=== PATIENT | female | born 1950 | race Caucasian/White ===

== ENCOUNTER 2016-09-01 08:36 | Inpatient (IN) | payer BC ==
[~2016-09-01] VITALS: Ht 162.6 cm; Wt 95.3 kg
--- NOTE | 2016-09-01 12:27 | DIAGNOSTIC IMAGING REPORT ---
PROCEDURE: CT SINUS/FACIAL BONES W/CONT CLINICAL INDICATION: Left periorbital swelling. Initial encounter. TECHNIQUE: 100 ml of Isovue 300 injected intravenously and axial images were obtained through the face with coronal and sagittal reformations. COMPARISON: None. FINDINGS: There is mild left periorbital soft tissue swelling but there is no evidence of an abscess. The globes and orbits are unremarkable. The parotid and submandibular glands are normal. No soft tissue masses. Small nonspecific cervical lymph nodes bilaterally. Right antral window. Mild right maxillary and sphenoid sinus disease. Moderate degenerative changes of the right TMJ. IMPRESSION: 1. Mild left periorbital preseptal soft tissue swelling without evidence of an abscess 2. Moderate right TMJ osteoarthritic changes 3. Right antral window 4. Mild right maxillary and sphenoid sinus disease 5. Results discussed with Dr. Blank All CT scans at this facility use dose modulation, iterative reconstruction, and/or weight-based dosing when appropriate to reduce radiation dose to as low as reasonably achievable.
--- NOTE | 2016-09-01 12:58 | ED NURSING NOTES ---
Clinical Report - Nurses [place] [address] [place] [address] 09/01/2016 8:39 Patient: MINERVA MONTIEL TRIAGE Acuity: LEVEL 3. Chief Complaint: REDNESS, PAIN and VISION PROBLEM TO LEFT EYE. Alert. No acute distress. SEPSIS SCREEN: Sepsis Screen. Negative (no infection suspected/documented). --09:21 Melissa Boles R.N. 09:15 09/01/16. BP: 173/94. HR: 75. RR: 12. O2 saturation: 97% on room air. Temp: 98.3 F (oral). Pain level now: 10/01. --09:21 Melissa Boles R.N. VISUAL ACUITY: Visual acuity performed without corrective lenses: left eye 20/70; right eye 20/50; both eyes 20/40 minus two letters. --10:23 Melissa Boles R.N. Weight: 94.8 kg stated. Height/Length: 64 inches Per Patient. BMI: 35.9. --09:20 Melissa Boles R.N. Medications Hydrochlorothiazide Oral 25 mg, daily. Imitrex Subcutaneous, as needed. Levothyroxine Sodium Oral, daily. --09:17 Melissa Boles R.N. Atorvastatin Calcium Oral 80 mg. --09:18 Melissa Boles R.N. Lexapro Oral 10 mg. --09:18 Melissa Boles R.N. Medication/allergy information source: the patient. --09:21 Melissa Boles R.N. Allergies Ceclor.(hives) --09:18 Melissa Boles R.N. Sulfa Antibiotics. --09:18 Melissa Boles R.N. History Arrived by private vehicle. Historian: patient. Unaccompanied. Primary physician (Adam). This started yesterday. ( Pt reports she is taking augmentin and tobermycin eye drops, yet her eye is getting more painful, red, and is having difficulty seeing.). She has had eye discomfort and blurred vision. She has had a moderate amount of watery discharge from the left eye. PAST MEDICAL HX: The patient has had a hysterectomy. SOCIAL HX: Never smoker. No alcohol use or drug use. FALL RISK ASSESSMENT: Fall risk assessment completed. No fall risk identified. NUTRITIONAL RISK ASSESSMENT: The nutritional risk assessment revealed no deficiencies. FUNCTIONAL ASSESSMENT: Functional assessment: no impairments noted. LEARNING NEEDS ASSESSMENT: The learning needs assessment revealed no barriers. SKIN INTEGRITY ASSESSMENT: Skin integrity risk assessment completed. No skin integrity risk identified. --: Melissa Boles R.N. PROBLEMS: Headache. Immunizations. Migraine Headache. Hypertension. Asthma. --:18 Melissa Boles R.N. ADDITIONAL SURGERIES: Cholecystectomy. Hysterectomy. --: Melissa Boles R.N. Assessment GENERAL / NEURO / PSYCH: Alert. Oriented X 4. Appears in no acute distress. Cameron Coma Scale: 15- eyes open spontaneously (4); best verbal response- oriented x 4 (5); best motor response- obeys commands (6). Patient appears calm and cooperative. RESPIRATORY: Respirations not labored. CVS: Capillary refill less than 2 seconds. GI / : Abdomen soft and nontender. SKIN: Mucous membranes are pink. Skin is warm and dry. --: Melissa Boles R.N. Interventions ID band on patient. To treatment room. --: Melissa Boles R.N. PHYSICAL ASSESSMENT 09:09/01/16. Ambulatory to room. GENERAL / NEURO / PSYCH: Alert. Appears in no acute distress. HEENT: No facial asymmetry noted. Conjunctival findings present: redness of the left conjunctiva and purulent exudate present in the left eye. CVS: Capillary refill less than 2 seconds. SKIN: Skin is warm and dry. Normal skin turgor. --: Melissa Boles R.N. NURSING PROGRESS NOTES 09:09/01/16. Two patient identifiers checked. Call light placed in reach. Side rails up x 1. Bed placed in lowest position. Brakes of bed on. Patient ready for evaluation- chart flagged and ED physician notified. --: Melissa Boles R.N. 10:08 09/01/2016 Site #1 started via IV in the left antecubital space with an 20g angiocath, with aseptic technique and good blood return; one attempt. Blood drawn: rainbow set. Labeled in the presence of the patient and sent to the lab. --10:18 Melissa Boles R.N. 10:14 09/01/2016 Started bag #1 1000 mL IV Fluids IV NS (Saline); at 150 mL/hr over 4 hour(s) via site #1 via IV pump. Allergies verified and confirmed 5 rights. IV patency established. IV site checked: no pain, redness, or swelling. IV flushed thoroughly pre- and post-medication administration. --10:19 Melissa Boles R.N. 12:08 09/01/16. The patient is calm and resting quietly. HEENT: The patient reports eye pain. --12:08 Melissa Boles R.N. 12:09 09/01/2016 Ibuprofen PO 800 mg given. Allergies verified and confirmed 5 rights. --12:09 Melissa Boles R.N. 13:02 09/01/2016 Dilaudid (HYDROmorphone HCl PF) IVP 0.5 mg given over 1 minute(s) via site #1. Allergies verified, confirmed 5 rights and sedative warning given to the patient. IV patency established. IV site checked: no pain, redness, or swelling. IV flushed thoroughly pre- and post-medication administration. IVP given by RN. --13:02 Melissa Boles R.N. 13:03 09/01/2016 Started 600 mg of Clindamycin IVPB in bag #1 50 mL; at 100 mL/hr over 30 minute(s) via site #1 via IV pump. Allergies verified and confirmed 5 rights. IV patency established. IV site checked: no pain, redness, or swelling. IV flushed thoroughly pre- and post-medication administration. --13:03 Melissa Boles R.N. 13:03 09/01/16. BP: 150/91. HR: 80. RR: 12. O2 saturation: 97% on room air. --13:03 Melissa Boles R.N. 13:32 09/01/2016 Clindamycin IVPB Discontinued: bag #1 infused. Total amount infused: 50 mL. IV patency established. IV site checked: no pain, redness, or swelling. IV flushed thoroughly. --13:32 Luis Shelton R.N. 13:34 09/01/16. ( Pt assisted to bathroom with RN, tolerated well.). --13:34 Michelle Jones 15:00 09/01/2016 IV Fluids IV NS Discontinued: bag #1 infused upon admission. Total amount infused: 1000 mL. IV patency established. IV site checked: no pain, redness, or swelling. IV flushed thoroughly. --17:00 Melissa Boles R.N. DISPOSITION / DISCHARGE Departure time: 15:36 Sep 01 2016. Condition at departure: improved and stable. Disposition: observation. Transported via stretcher by [employer]. Report was given to a nurse via a phone call. Report included patient's care, treatment, medications, reviewed medication reconcilliation, and condition (including any recent changes or anticipated changes). All questions were answered. Report was acknowledged and care was transferred. (Sanjiv RN). Patient's personal items include: shirt, pants, undergarments, coat, socks, shoes, glasses, jewelry, wallet and cell phone, elias earrings; items were placed in belongings bag, given to the patient and transported with the patient. She did not have dentures or a hearing aid. --15:36 Melissa Boles R.N. 15:33 09/01/16. BP: 147/81. HR: 70. RR: 16. O2 saturation: 96% on room air. Temp: 98.2 F (oral). Pain level now: 08/03. --15:36 Melissa Boles R.N. 15:36 09/01/2016 Site #[address] upon admission; patent, no pain and no signs of infection or infiltration. Flushed with 10 mL saline; flushes easily. --15:36 Melissa Boles R.N. Locked/Released at 09/01/2016 17:00 by Melissa Boles R.N.
--- NOTE | 2016-09-01 12:58 | ED CLINICAL REPORT ---
Clinical Report - Physicians/Mid Levels [facility] [address] [place] [address] 09/01/2016 8:39 [id number] Time Seen: 09:49 Sep 01 2016. Arrived- By private vehicle. Historian- patient. CPT: ER phys charges level 5 (#[id number]). HISTORY OF PRESENT ILLNESS Chief Complaint: EYE PAIN and REDNESS. This started yesterday, involves the left eye and is characterized as moderate in severity. This started yesterday. ( Pt reports she is taking augmentin and tobermycin eye drops, yet her eye is getting more painful, red, and is having difficulty seeing.). She has had eye discomfort and blurred vision. She has had a moderate amount of watery discharge from the left eye. The patient did not sustain an injury. Eye pain, discomfort, burning, redness and irritation. Eye discharge and matting. Eyelid swelling. Decreased vision. REVIEW OF SYSTEMS No fever, cough, chills, fatigue or fever. No nasal congestion, epistaxis, runny nose, mouth sores or sore throat. No cough, difficulty breathing, abdominal pain, urinary frequency or weakness. No diabetic symptoms, easy bruising or difficulty with urination. The patient has had decreased vision and eye irritation. Sinus congestion. All systems otherwise negative, except as recorded above. PAST HISTORY No history of prior eye injury, diabetes mellitus or glaucoma. She does not wear contact lenses. Medications: Lexapro Oral 10 mg. Atorvastatin Calcium Oral 80 mg. Hydrochlorothiazide Oral 25 mg, daily. Imitrex Subcutaneous, as needed. Levothyroxine Sodium Oral, daily. Allergies: Ceclor.(hives) Sulfa Antibiotics. SOCIAL HISTORY Never smoker. No alcohol use or drug use. ADDITIONAL NOTES The nursing notes have been reviewed. PHYSICAL EXAM Vital Signs: 09/01/2016 09:15 BP: 173/94. HR: 75. RR: 12. O2 saturation: 97%. Temp: 98.3 F. Pain level now: 4/10. Appearance: Alert. Oriented X3. HEENT: Nose normal. Pharynx normal. Head appears normal to external inspection. Rt Eye: Right eye exam normal. Eyes: Visual acuity noted- see nurse's notes. Corneas appear normal to inspection. Pupils equal, round and reactive to light. Accommodation normal. EOMs intact. Anterior chambers clear. Anterior chambers of normal depth. Lt Eye: Moderate eyelid edema and erythema. Conjunctival edema. Injected conjunctiva. Exudate present. No stye present. No foreign body under the eyelid. No injury to the eyelids. No conjunctival foreign body or injury to the conjunctiva or sclera. Neck: Neck supple. Normal inspection. CVS: Normal heart rate and rhythm. Respiratory: No respiratory distress. Skin: No rash. Neuro: Oriented X 3. LABS, X-RAYS, AND EKG Laboratory Tests: CBC w Diff: (FREEMAN: 09/01/2016 10:10) ( MsgRcvd 09/01/2016 10:30) Final results Test Result Flag Units (Reference) WHITE BLOOD COUNT 8.8 K/uL (4.5-11.5) RED BLOOD COUNT 4.86 M/uL (4.00-5.20) HEMOGLOBIN 13.9 gm/dL (12.0-16.0) HEMATOCRIT 41.5 % (36.0-46.0) MEAN CELL VOLUME 85 fL (80-100) MEAN CORPUSCULAR HGB 29 pg (26-34) MEAN CORPUSCULAR HGB CONC 34 g/dL (31-37) RED CELL DISTRIBUTION WIDTH 15.1 H % (11.6-14.8) PLATELET COUNT 321 K/uL (150-400) NEUTROPHIL % 63.3 % (50-75) LYMPH % 24.1 L % (25-40) MONO % 9.5 % (3-14) EOSINOPHIL % 2.9 % (0-4) BASOPHIL % 0.2 % (0-2) [id number]: (FREEMAN: 09/01/2016 10:10) ( MsgRcvd 09/01/2016 11:11) Final results Test Result Flag Units (Reference) PROCALCITONIN <0.5 ng/mL (0-0.5) PCT Concentration: Interpretation : Risk/option for action PCT <=0.5 ng/mL : Systemic : Low risk forinfection(sepsis): progression to severeis not likely. : systemic infection.Local bacterial : CAUTION-PCT levelsinfection is : below 0.5 ng/mL do notpossible. : exclude an infection,because localizedinfections (withoutsystemic signs) may beassociated with suchlow levels. If PCT ismeasured very earlyafter a bacterialchallenge (usually <6hours), these valuesmay still be low. Inthis case PCT shouldbe re-assessed 6-24hours later. PCT >0.5 and : Systemic infection: Moderate risk for<= 2 ng/mL : (sepsis) is : progression to severepossible, but : systemic infection.other conditions : The patient should beare known to : closely monitoredelevate PCT. : both clinically andby re-assessing PCTwithin 6-24 hours. PCT > 2 ng/mL : Systemic infection: High risk for(sepsis) is likely: progression to severeunless other : systemic infection.causes are known. : PCT >= 10 ng/mL : Important systemic: High likelihood ofinflammatory : severe sepsis orresponse, almost : septic shock.exclusively due to:severe bacterial :sepsis or septic :shock. : BMP: (FREEMAN: 09/01/2016 10:10) ( MsgRcvd 09/01/2016 10:41) Final results Test Result Flag Units (Reference) GLUCOSE 112 H mg/dL (70-110) BUN 19 H mg/dL (7-18) CREATININE 0.9 mg/dL (0.6-1.3) Estimated GFR >60 mL/min Estimated GFR- >60 mL/min Note: Persistent reduction over 3 months in eGFR<60 mL/min/1.73 m2 defines CKD. Patients with eGFR values>=60 mL/min/1.73 m2 may also have CKD if evidence ofpersistent proteinuria. Additional information may be foundat www.kidney.org. SODIUM 142 mmol/L (136-145) POTASSIUM 3.7 mmol/L (3.5-5.1) CHLORIDE 103 mmol/L (98-107) CARBON DIOXIDE 29 mmol/L (21-32) CALCIUM 9.2 mg/dL (8.5-10.1) C-REACTIVE PROTEIN 1.4 H mg/dL (0.0-0.9) . Note - Tests: (CT face: pre-septal periorbital cellulitis.). PROGRESS AND PROCEDURES Course of Care: IV NS Cleocin 600 mg IV Motrin 800 mg po Dilaudid 0.5 mg IV Patient is stable. Symptoms better. Discussed case with on-call health care provider, (Ry). Reviewed test results. Agreed upon treatment plan. Health care provider will see patient in hospital. Patient/family counseled. Disposition orders written. Disposition: Admitted to Acute Care. CLINICAL IMPRESSION Acute periorbital cellulitis left eye. (Electronically signed by Nate Blank MD 09/02/2016 15:20)
--- NOTE | 2016-09-01 12:58 | ED ORDER SUMMARY ---
..... Patient: MINERVA MONTIEL OrderSheet [facility] VisitID: [id number] [place] [address] 66y, F Registration Date/Time: 09/01/2016 ORDER SHEET Weight: 94.8 kg (stated) Allergies: Ceclor, Sulfa Antibiotics GENERAL ORDERS: CT Sinus/Facial Bones w Cont (left periorbital cellulitis) Urgent (09:54 09/01/2016 Madi OWUSU) (Ack 10:11 LTapper) (11:57 MWinterer R.N.) CBC w Diff Urgent (09:55 09/01/2016 Madi OWUSU) (Ack 10:11 LTapper) (10:18 MWinterer R.N.) PCT (Procalcitonin) Urgent (09:55 09/01/2016 Mdai OWUSU) (Ack 10:11 LTapper) (10:18 MWinterer R.N.) CRP Urgent (09:55 09/01/2016 Madi OWUSU) (Ack 10:11 LTapper) (10:18 MWinterer R.N.) BMP Urgent (09:55 09/01/2016 Madi OWUSU) (Ack 10:11 LTapper) (10:18 MWinterer R.N.) Visual Acuity (09:55 09/01/2016 Madi OWUSU) (Ack 10:01 MWinterer R.N.) (10:22 MWinterer R.N.) MEDICATION ORDERS: Ibuprofen PO 800 mg (NOW) (12:09 09/01/2016 MWinterer R.N. verbal order read back to Madi OWUSU) (12:09 MWinterer R.N.) IV FLUIDS: IV NS : initial bolus none -, then 150 mL/hr for 4h (NOW); Routine (09:53 09/01/2016 Madi OWUSU) (Ack 10:01 MWinterer R.N.) (10:19 MWinterer R.N.) Clindamycin IV 600 mg/50mL (NOW) (12:48 09/01/2016 Madi OWUSU) (13:03 MWinterer R.N.) Dilaudid IV 0.5 mg (NOW) (12:49 09/01/2016 Madi OWUSU) (13:02 Aparna Yee) ORDER SHEET NOTES: [Electronically signed by Melissa Boles R.N. (17:00 09/01/2016)] [Electronically signed by Nate Blank MD (15:20 09/02/2016)] [Electronically locked/signed by Melissa Boles R.N. (17:09/01/2016)]
--- NOTE | 2016-09-01 12:58 | ED ORDER SUMMARY ---
..... Patient: MINERVA MONTIEL OrderSheet [facility] VisitID: [id number] [place] [address] 66y, F Registration Date/Time: 09/01/2016 ORDER SHEET Weight: 94.8 kg (stated) Allergies: Ceclor, Sulfa Antibiotics GENERAL ORDERS: CT Sinus/Facial Bones w Cont (left periorbital cellulitis) Urgent (09:54 09/01/2016 Madi OWUSU) (Ack 10:11 LTapper) (11:57 MWinterer R.N.) CBC w Diff Urgent (09:55 09/01/2016 Madi OWUSU) (Ack 10:11 LTapper) (10:18 MWinterer R.N.) PCT (Procalcitonin) Urgent (09:55 09/01/2016 Madi OWUSU) (Ack 10:11 LTapper) (10:18 MWinterer R.N.) CRP Urgent (09:55 09/01/2016 Madi OWUSU) (Ack 10:11 LTapper) (10:18 MWinterer R.N.) BMP Urgent (09:55 09/01/2016 Madi OWUSU) (Ack 10:11 LTapper) (10:18 MWinterer R.N.) Visual Acuity (09:55 09/01/2016 Madi OWUSU) (Ack 10:01 MWinterer R.N.) (10:22 MWinterer R.N.) MEDICATION ORDERS: Ibuprofen PO 800 mg (NOW) (12:09 09/01/2016 MWinterer R.N. verbal order read back to Madi OWUSU) (12:09 MWinterer R.N.) IV FLUIDS: IV NS : initial bolus none -, then 150 mL/hr for 4h (NOW); Routine (09:53 09/01/2016 Madi OWUSU) (Ack 10:01 MWinterer R.N.) (10:19 MWinterer R.N.) Clindamycin IV 600 mg/50mL (NOW) (12:48 09/01/2016 Madi OWUSU) (13:03 MWinterer R.N.) Dilaudid IV 0.5 mg (NOW) (12:49 09/01/2016 Madi OWUSU) (13:02 Aparna Yee) ORDER SHEET NOTES: [Electronically signed by Melissa Boles R.N. (17:00 09/01/2016)] [Electronically signed by Nate Blank MD (15:20 09/02/2016)] [Electronically locked/signed by Melissa Boles R.N. (17:09/01/2016)]
[2016-09-01 16:18] VITALS: BP 162/94
[2016-09-01 18:01] VITALS: BP 133/70
[2016-09-01] MEDS ORDERED: LIPITOR80 MG PO (18:22)
[2016-09-01] MEDS ORDERED: HYDROCHLOROTHIA25 MG PO (18:22)
[2016-09-01] MEDS ORDERED: LEXAPRO10 MG PO (18:23)
[2016-09-01] MEDS ORDERED: LEVO-T125 MCG (18:23)
[2016-09-01] MEDS ORDERED: ALBUTEROL2.5 MG/3 M IN (18:25)
[2016-09-01] MEDS ORDERED: SYMBICORT1 AE1 (18:25)
[2016-09-01] MEDS ORDERED: PRILOSEC20 MG (18:26)
--- NOTE | 2016-09-01 22:59 | HISTORY AND PHYSICAL ---
ADMITTED: 09/01/2016 HISTORY OF PRESENT ILLNESS: This is a 66-year-old previously healthy female presenting to initially her own clinic after less than 12 hours of initially scleral injection, followed by swelling and mild erythema of her upper and lower eyelid on the left eye. Later in the afternoon, she went to the walk-in clinic and was diagnosed with conjunctivitis and sinusitis and prescribed Augmentin and tobramycin eyedrops. This morning, she woke up with increased pain and increased swelling and, therefore, came to the emergency room. MEDICAL/SURGICAL HISTORY: Past medical history: 1. Epiretinal tear in her right eye. 2. Bilateral cataracts. 3. Hypertension. 4. Dyslipidemia. 5. Asthma. 6. Hypothyroidism. 7. GERD. 8. Depression. Past surgical history: 1. 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 2. T and A. 3. Cholecystectomy. 4. Total hysterectomy and bilateral oophorectomy. 5. Right knee arthroplasty. 6. Bilateral arthroscopy with meniscal repairs. 7. Sinus surgeries x4. MEDICATIONS: 1. Omeprazole 20 mg p.o. daily. 2. Levothyroxine 125 mcg p.o. daily. 3. Symbicort 2 puffs inhaled b.i.d. 4. Albuterol HFA 2 puffs inhaled q.4 hours p.r.n. wheezing. 5. Atorvastatin 80 mg p.o. daily. 6. Hydrochlorothiazide 25 mg p.o. daily. 7. Lexapro 10 mg p.o. daily. ALLERGIES: 1. SULFA. 2. CECLOR. SOCIAL HISTORY: She lives with her daughters. She does have a pet dog. She denies any smoking, alcohol, or drug use currently or in the past. FAMILY HISTORY: Parents with hypertension and dyslipidemia. Father also with aortic aneurysm. REVIEW OF SYSTEMS: A full 12-point review of systems was done and was negative or as per HPI. PHYSICAL EXAMINATION: VITAL SIGNS: Blood pressure on admission 162/94, heart rate is 64, respiratory rate of 20, oxygen saturation is 95% on room air, T-max is 36.8 degrees Celsius. GENERAL: This is a well-appearing female sitting in bed in no apparent distress. HEENT: Head atraumatic, normocephalic. Pupils are equal, round, and reactive to light with accommodation bilaterally. Extraocular muscles are intact bilaterally. Left eye has scleral icterus with upper and lower mild erythema with green discharge. Trachea is midline. There is no JVD. Oropharynx is nonerythematous without exudates. LUNGS: Clear to auscultation bilaterally. HEART: S1, S2, regular rate and rhythm. No S3, S4, gallops, or rubs. There is a 2/6 systolic murmur increased at the base. ABDOMEN: Soft, nontender, nondistended without hepatosplenomegaly or masses. Bowel sounds active. EXTREMITIES: There is trace bilateral lower extremity edema. LAB/IMAGING: Sodium is 142, potassium 3.7, chloride 103, bicarbonate 29, BUN of 19, creatinine 0.9, glucose of 112, calcium 9.2. procalcitonin < 0.5. CRP is 1.4. White blood cell count of 8.8, hemoglobin of 13.9, hematocrit of 41.5, platelets of 321. Other studies: CTA scan of her face shows mild left periorbital preseptal soft tissue edema, but no abscess. There is moderate right TMJ osteoarthritis and mild right maxillary and sphenoid sinus disease. IMPRESSION: 1. This is a 66-year-old female with left preseptal cellulitis, presenting to the emergency department with complaints of no improvement after 12 hours of Augmentin and tobramycin eyedrops and severe eye pain requiring pain control. PLAN: 1. The patient will be admitted and placed on intravenous clindamycin. There is a culture at the walk-in clinic pending, per the patient. If the patient is improved in the morning, we may be able to discharge her. 2. Prophylaxis: Lovenox 40 mg subcutaneous daily and the patient is eating. 3. CODE STATUS: FULL CODE.
[2016-09-02] VITALS (7 sets, daily range): BP systolic 101–160; BP diastolic 58–93
--- NOTE | 2016-09-02 15:20 | ED MAR SUMMARY ---
..... Medication Administration Record [facility] [address] [place] [address] Patient: MINERVA MONTIEL Visit ID: [id number] 66y, F Weight: 94.8 kg Height/Length: 64 in BMI: 35.9 ALLERGIES: Sulfa Antibiotics, Ceclor Start 10:14 09/01/2016 Melissa Boles R.N., Stop 15:00 09/01/2016 Melissa Boles R.N. Medication Administered: IV NS (SALINE), Dose: IV Fluids over 4 hour(s), Rate: 150 mL/hr, Dispensed: 1000 mL bag, Site: #1 left AC. Medication Ordered: IV NS : initial bolus none -, then 150 mL/hr for 4h (NOW); Routine. Given 12:09 09/01/2016 Melissa Boles R.N. Medication Administered: IBUPROFEN [PO], Dose: 800 mg PO. Medication Ordered: Ibuprofen PO 800 mg (NOW). Given 13:02 09/01/2016 Melissa Boles R.N. Medication Administered: DILAUDID [IVP] (HYDROMORPHONE HCL PF), Dose: 0.5 mg IVP over 1 minute(s), Site: #1 left AC. Medication Ordered: Dilaudid IV 0.5 mg (NOW). Start 13:03 09/01/2016 Melissa Boles R.N., Stop 13:32 09/01/2016 Luis Shelton R.N. Medication Administered: CLINDAMYCIN [IVPB], Dose: 600 mg IVPB over 30 minute(s), Rate: 100 mL/hr, Dispensed: 50 mL bag, Site: #1 left AC. Medication Ordered: Clindamycin IV 600 mg/50mL (NOW).
--- NOTE | 2016-09-02 15:20 | ED MED RECONCILIATION SUMMARY ---
Patient: MINERVA MONTIEL Medication Reconciliation Report [facility] VisitID: [id number] [address] [place] [address] 66y, F Registration Date/Time: 09/01/2016 Weight: 94.8 kg Height/Length: 64 in. BMI: 35.9 ALLERGIES: Ceclor, Sulfa Antibiotics The patient's Home Medications are listed below: THE FOLLOWING MEDICATIONS NEED TO BE RECONCILED: Atorvastatin Calcium Oral 80 mg Hydrochlorothiazide Oral 25 mg, daily Imitrex Subcutaneous Levothyroxine Sodium Oral, daily Lexapro Oral 10 mg The source(s) of the original Home Medication information: patient The following Medications were given to the patient in the Emergency Department: IV NS IV Fluids bolus 0, then 150 mL/hr, administered: 09/01/2016 10:14:00 AM Ibuprofen [PO] PO 800 mg, administered: 09/01/2016 12:09:00 PM Dilaudid [IVP] IVP 0.5 mg, administered: 09/01/2016 1:02:00 PM Clindamycin [IVPB] IVPB bolus 0, then 600 mg 100 mL/hr, administered: 09/01/2016 1:03:00 PM The following Medications were prescribed to the patient: None.
--- NOTE | 2016-09-02 15:20 | ED DISCHARGE INSTRUCTIONS ---
Patient: MINERVA MONTIEL General Instructions [facility] VisitID: [id number] [place] [address] 66y, F Registration Date/Time: 09/01/2016 Acute periorbital cellulitis left eye. ADDITIONAL INFORMATION Periorbital Cellulitis This is an infection of the tissues around the eye. It is most often due to an infected scratch or insect bite. Sometimes a sinus infection can cause this problem. Home Care: 1) Take your antibiotic medicine exactly as directed, until it is finished. 2) You may use acetaminophen (Tylenol) or ibuprofen (Motrin, Advil) to control pain, unless another pain medicine was prescribed. [NOTE: If you have liver disease or ever had a stomach ulcer, talk with your doctor before using these medicines.] Do not use ibuprofen in children under six months of age. Follow Up with your doctor or as advised by our staff. Return Promptly or contact your doctor if any of the following occur: -- Increasing swelling around the eye -- Increasing redness -- Fever of 100.5 (38 C) oral or 101.5 (38.6 C) rectal for more than two days on antibiotics You have been given the following additional information: Zainab-Orbital Cellulitis (Electronically signed by Nate Blank MD 09/02/2016 15:20)
--- NOTE | 2016-09-02 15:20 | ED MED RECONCILIATION SUMMARY ---
Patient: MINERVA MONTIEL Medication Reconciliation Report [facility] VisitID: [id number] [address] [place] [address] 66y, F Registration Date/Time: 09/01/2016 Weight: 94.8 kg Height/Length: 64 in. BMI: 35.9 ALLERGIES: Ceclor, Sulfa Antibiotics The patient's Home Medications are listed below: THE FOLLOWING MEDICATIONS NEED TO BE RECONCILED: Atorvastatin Calcium Oral 80 mg Hydrochlorothiazide Oral 25 mg, daily Imitrex Subcutaneous Levothyroxine Sodium Oral, daily Lexapro Oral 10 mg The source(s) of the original Home Medication information: patient The following Medications were given to the patient in the Emergency Department: IV NS IV Fluids bolus 0, then 150 mL/hr, administered: 09/01/2016 10:14:00 AM Ibuprofen [PO] PO 800 mg, administered: 09/01/2016 12:09:00 PM Dilaudid [IVP] IVP 0.5 mg, administered: 09/01/2016 1:02:00 PM Clindamycin [IVPB] IVPB bolus 0, then 600 mg 100 mL/hr, administered: 09/01/2016 1:03:00 PM The following Medications were prescribed to the patient: None.
--- NOTE | 2016-09-02 15:20 | ED DISCHARGE INSTRUCTIONS ---
Patient: MINERVA MONTIEL General Instructions [facility] VisitID: [id number] [place] [address] 66y, F Registration Date/Time: 09/01/2016 Acute periorbital cellulitis left eye. ADDITIONAL INFORMATION Periorbital Cellulitis This is an infection of the tissues around the eye. It is most often due to an infected scratch or insect bite. Sometimes a sinus infection can cause this problem. Home Care: 1) Take your antibiotic medicine exactly as directed, until it is finished. 2) You may use acetaminophen (Tylenol) or ibuprofen (Motrin, Advil) to control pain, unless another pain medicine was prescribed. [NOTE: If you have liver disease or ever had a stomach ulcer, talk with your doctor before using these medicines.] Do not use ibuprofen in children under six months of age. Follow Up with your doctor or as advised by our staff. Return Promptly or contact your doctor if any of the following occur: -- Increasing swelling around the eye -- Increasing redness -- Fever of 100.5 (38 C) oral or 101.5 (38.6 C) rectal for more than two days on antibiotics You have been given the following additional information: Zainab-Orbital Cellulitis (Electronically signed by Nate Blank MD 09/02/2016 15:20)
--- NOTE | 2016-09-02 15:20 | ED MAR SUMMARY ---
..... Medication Administration Record [facility] [address] [place] [address] Patient: MINERVA MONTIEL Visit ID: [id number] 66y, F Weight: 94.8 kg Height/Length: 64 in BMI: 35.9 ALLERGIES: Sulfa Antibiotics, Ceclor Start 10:14 09/01/2016 Melissa Boles R.N., Stop 15:00 09/01/2016 Melissa Boles R.N. Medication Administered: IV NS (SALINE), Dose: IV Fluids over 4 hour(s), Rate: 150 mL/hr, Dispensed: 1000 mL bag, Site: #1 left AC. Medication Ordered: IV NS : initial bolus none -, then 150 mL/hr for 4h (NOW); Routine. Given 12:09 09/01/2016 Melissa Boles R.N. Medication Administered: IBUPROFEN [PO], Dose: 800 mg PO. Medication Ordered: Ibuprofen PO 800 mg (NOW). Given 13:02 09/01/2016 Melissa Boles R.N. Medication Administered: DILAUDID [IVP] (HYDROMORPHONE HCL PF), Dose: 0.5 mg IVP over 1 minute(s), Site: #1 left AC. Medication Ordered: Dilaudid IV 0.5 mg (NOW). Start 13:03 09/01/2016 Melissa Boles R.N., Stop 13:32 09/01/2016 Luis Shelton R.N. Medication Administered: CLINDAMYCIN [IVPB], Dose: 600 mg IVPB over 30 minute(s), Rate: 100 mL/hr, Dispensed: 50 mL bag, Site: #1 left AC. Medication Ordered: Clindamycin IV 600 mg/50mL (NOW).
--- NOTE | 2016-09-02 18:05 | Progress Note ---
Subjective General Patient with worsening pain this am. Resolved with medications. Erythema and improving on antibiotics. No abd pain, chest pain, SOB, or cough. No diarrhea/ constipation. Physical Exam Vital Signs / I&Os Vital Signs Date Time Temp Pulse Resp B/P Pulse O2 O2 Flow FiO2 Ox Delivery Rate 09/02 1630 Room Air 09/02 1429 36.9 71 18 122/68 93 Room Air 09/02 1053 36.7 64 18 101/58 91 Room Air 09/02 0637 36.5 56 18 160/93 93 Room Air 09/02 0351 36.4 65 18 138/75 97 Room Air 09/02 0040 36.4 63 18 128/58 94 Room Air 09/02 0035 Room Air 09/01 1801 36.9 74 20 133/70 93 Room Air I&O 09/02 0000 09/01 1600 09/01 0800 Intake Total 625 Output Total Balance 625 General Appearance Alert, Cooperative, No acute distress Lungs Clear to auscultation, Normal air movement Cardiovascular Regular rate and rhythm, Normal S1 and S2, No murmurs, gallops, rubs Abdomen Normal bowel sounds, Soft, No tenderness Extremities No edema Skin Periorbital L eye erythema improving with decreasing edema. Scleral injection still present. Discharge improving. Assessment and Plan Problem List 1. Periorbital cellulitis of left eye Plan Improving on clindamycin. Culture pending at [facility]. Plan to discharge likely tomorrow.
[2016-09-03 01:18] VITALS: BP 118/56
[2016-09-03 06:30] VITALS: BP 124/74
[2016-09-03 11:31] VITALS: BP 148/91
[2016-09-03] MEDS ORDERED: CLEOCIN300 MG PO (13:30)
--- NOTE | 2016-09-03 13:34 | Provider's Discharge Care Plan ---
Problem, Goal, Plan Problem List 1. Periorbital cellulitis of left eye Instructions: - take antibiotics as prescribed, resume all other home medications
--- NOTE | 2016-09-03 13:34 | Provider's Discharge Care Plan ---
Problem, Goal, Plan Problem List 1. Periorbital cellulitis of left eye Instructions: - take antibiotics as prescribed, resume all other home medications
--- NOTE | 2016-09-03 13:41 | Progress Note ---
Subjective General Pt seen and examined, patients initial eye swelling and redness has decreased significantly. At this point the patietn could be discharged with eye drops as an out patient. Constitutional Denies: Fever, Chills, Sweats, Weakness, Malaise, Other. Eyes Denies: Pain, Vision Change, Conjunctival Inflammation, Eyelid Inflammation, Redness, Other. Respiratory Denies: Cough, Dry, SOB w/exertion, Wheezing, Hemoptysis, Pleuritic Pain, Sputum , Other. Cardiovascular Denies: Chest Pain, Palpitations, Orthopnea, PND, Edema, Light-headedness, Other. Gastrointestinal Denies: Nausea, Vomiting, Abdominal Pain, Diarrhea, Constipation, Melena, Hematochezia, Other. Genitourinary Denies: Dysuria, Frequency, Incontinence, Hematuria, Retention, Other. Musculoskeletal Denies: Neck Pain, Shoulder Pain, Arm Pain, Back Pain, Hand Pain, Leg Pain, Foot Pain, Other. Physical Exam Vital Signs / I&Os Vital Signs Date Time Temp Pulse Resp B/P Pulse O2 O2 Flow FiO2 Ox Delivery Rate 09/03 1131 98.8 69 20 148/91 94 Room Air 0.0 09/03 0630 98.4 71 16 124/74 93 Room Air 0.0 09/03 0118 98.1 75 18 118/56 93 Room Air 09/02 2214 98.6 73 18 141/82 92 Room Air 09/02 1810 98.8 76 18 128/78 92 Room Air 09/02 1630 Room Air 09/02 1429 98.4 71 18 122/68 93 Room Air I&O 09/02 0800 09/02 1600 09/03 0000 Intake Total 780 1040 Output Total 450 1350 Balance -450 780 -310 General Appearance Alert, Oriented X3, No acute distress HEENT Normal exam, EOMI, Moist mucous membranes Lungs Clear to auscultation, Normal air movement Cardiovascular Regular rate and rhythm, Normal S1 and S2, No murmurs, gallops, rubs Abdomen Normal bowel sounds, Soft, No guarding Extremities No edema, Normal pulses, No tenderness, Strength = upper ext's, Strength = lower ext's Skin No Rashes, No Breakdown Psych/Mental Status Mood normal Assessment and Plan Problem List 1. Periorbital cellulitis of left eye Plan - will dc on po clindamycin - pt will need to follow up with her pmd within the week
--- NOTE | 2016-09-03 13:45 | Discharge Summary ---
Discharge Summary Report Admit Date 09/02/16 Discharge Date 09/03/16 Admission Diagnosis pre septal cellulitis Discharge Diagnosis pre septal cellulitis Brief History This is a 66-year-old previously healthy female presenting to initially her own clinic after less than 12 hours of initially scleral injection, followed by swelling and mild erythema of her upper and lower eyelid on the left eye. Later in the afternoon, she went to the walk-in clinic and was diagnosed with conjunctivitis and sinusitis and prescribed Augmentin and tobramycin eyedrops. This morning, she woke up with increased pain and increased swelling and, therefore, came to the emergency room. Hospital Course Pt was treated with IV clindamycin with almost immediate relief of swelling and redness. Patients skin overlying the infected area looks appropriate with no evidence of worsening swelling or vision compromise. Patietn will be discharged on po clindamycin. Patient will need to follow up with her pmd within the week. Patient will resume all her home medications. General Appearance Alert, Oriented X3, No acute distress HEENT PERRLA, EOMI, Mucous membran moist/pink, - eye shows some conjuctival injection and some residual swelling Lungs Normal air movement Cardiovascular Normal S1, Normal S2, No murmurs Abdomen Soft, No hepatospenomegaly, No masses Skin No Rashes, No Breakdown Discharge Instructions/Meds - take medications as prescribed - follow up with your pmd
== END 2016-09-03 13:50 | disposition home or self-care (01) | DRG 603 ==
LOC: ED SRH 08:36 → TRANS SRH 14:27 → ACUTE2 SRH 15:45
PROVIDERS: ADMIT Emergency Medicine
DX: L03.213 Periorbital cellulitis (principal); H15.89 Other disorders of sclera; J32.0 Chronic maxillary sinusitis; J32.3 Chronic sphenoidal sinusitis; I10 Essential (primary) hypertension; E89.0 Postprocedural hypothyroidism
CPT/HCPCS: 29230; 29259; 29264; 90047; 90648; 91023; 91585; 93004; 93140; 95059